=== PATIENT | female | born 1995 ===

== ENCOUNTER → 2017-02-22 | Outpatient (CLI) | payer OTHER ==
[~2017-02-22] MED LIST: PREN1TAB29 PO
[2017-02-22 18:26] LABS: THYROID STIMULATING HORMONE 3.11 uIu/ml (0.300-4.500)
== END | disposition home or self-care (01) ==
LOC: C.LABPBG 15:43
PROVIDERS: ATTEND Family Medicine
DX: R53.83 Other fatigue (principal); E55.9 Vitamin D deficiency, unspecified